=== PATIENT | female | born 1975 | race Caucasian/White ===

== ENCOUNTER → 2018-07-05 | Outpatient (REF) | payer OTHER ==
[2018-07-05 19:00] LABS: BASO % 0.3 % (0.0-1.0); EOS # 0.1 10^3/uL (0.0-0.50); EOS % 1.5 % (0.0-3.0); HEMATOCRIT 41.3 % (36.0-47.0); HEMOGLOBIN 13.7 g/dl (12.0-15.5); LYMPH # 3.6 10^3/uL (1.5-4.5); LYMPH % 40.4 % (24.0-44.0); MEAN CORPUSCULAR HEMOGLOBIN 30.9 pg (27.0-33.0); MEAN CORPUSCULAR HGB CONC 33.2 g/dl (32.0-36.5); MEAN CORPUSCULAR VOLUME 93.2 fl (80.0-96.0); MONO # 0.5 10^3/uL (0.0-0.8); MONO % 5.8 % (0.0-5.0); NEUTROPHILS # 4.6 10^3/uL (1.8-7.7); NEUTROPHILS % 51.7 % (36.0-66.0); PLATELET COUNT, AUTOMATED 337 10^3/uL (150-450); RED BLOOD COUNT 4.43 10^6/uL (4.00-5.40)
[2018-07-05 19:18] LABS: FREE T4 0.94 NG/DL (0.76-1.46); THYROID STIMULATING HORMONE 0.038 uIU/ML (0.358-3.740)
[2018-07-07 15:16] LABS: HPV HYBRID CAPTURE II Negative (Negative)
== END ==
LOC: M LABDRWAD 17:16
PROVIDERS: ATTEND Obstetrics & Gynecology
DX: N93.9 Abnormal uterine and vaginal bleeding, unspecified (principal)

== ENCOUNTER → 2018-09-01 | Outpatient (REF) | payer OTHER | LOC: M LAB REF 12:41 | PROVIDERS: ATTEND Physician Assistant | DX: F11.20 Opioid dependence, uncomplicated (principal) ==

== ENCOUNTER → 2018-09-17 | Outpatient (CLI) | payer OTHER ==
--- NOTE | 2018-09-17 12:22 | REPMRS ---
Patient History The patient states she has not had a clinical breast exam in over a year. Family history of pancreatic cancer at age 50 or over in maternal grandfather. Took hormonal contraceptives for 5 years. Digital Woman Screen Mammo: September 17, 2018 - Exam #: [id number] Bilateral CC and MLO view(s) were taken. Technologist: Genoveva Khan, Technologist FINDINGS: There are scattered fibroglandular densities. There is no evidence of cancer on this mammogram. Assessment: BI-RADS/ACR category 2 mammogram. Benign Findings. Recommendation Routine screening mammogram of both breasts in 1 year (for women over age 40). This mammogram was interpreted with the aid of an FDA-approved computer-aided dectection system. Electronically Signed By: Nicho Sim MD 09/17/18 [id number]
--- NOTE | 2018-09-17 12:51 | REP ---
PELVIC SONOGRAM: HISTORY: Abnormal uterine and vaginal bleeding. FINDINGS: Transabdominal and transvaginal scanning are performed. Uterine dimensions are normal at 8.0 x 4.2 x 4.8 cm. Endometrial echo is 1.3 cm in anteroposterior dimension. No focal uterine mass is seen. Nabothian cysts are seen in the cervix. Urinary bladder diaz are smooth. Normal ovaries are seen bilaterally. Right ovarian dimensions are 3.0 x 2.4 x 3.3 cm. Left ovary measures 2.4 x 2.0 x 2.3 cm. Doppler flow is normal in both ovaries. Resistive indices are 0.39 on the right and 0.69 on the left. IMPRESSION: Normal pelvic sonography findings. Electronically Signed by Tu Chen MD 09/17/2018 01:09 P
== END ==
LOC: M WHC 10:14
PROVIDERS: ATTEND Obstetrics & Gynecology
DX: Z12.31 Encounter for screening mammogram for malignant neoplasm of breast (principal); N93.9 Abnormal uterine and vaginal bleeding, unspecified

== ENCOUNTER → 2018-09-21 | Outpatient (REF) | payer OTHER ==
[2018-09-21 15:22] LABS: BASO % 0.4 % (0.0-1.0); EOS # 0.1 10^3/uL (0.0-0.50); HEMATOCRIT 40.8 % (36.0-47.0); HEMOGLOBIN 13.3 g/dl (12.0-15.5); LYMPH # 2.7 10^3/uL (1.5-4.5); LYMPH % 55.9 % (24.0-44.0); MEAN CORPUSCULAR HEMOGLOBIN 30.9 pg (27.0-33.0); MEAN CORPUSCULAR HGB CONC 32.6 g/dl (32.0-36.5); MEAN CORPUSCULAR VOLUME 94.7 fl (80.0-96.0); MONO # 0.3 10^3/uL (0.0-0.8); MONO % 6.1 % (0.0-5.0); NEUTROPHILS # 1.7 10^3/uL (1.8-7.7); NEUTROPHILS % 35.6 % (36.0-66.0); PLATELET COUNT, AUTOMATED 369 10^3/uL (150-450); RED BLOOD COUNT 4.31 10^6/uL (4.00-5.40); WHITE BLOOD COUNT 4.9 10^3/uL (4.0-10.0)
[2018-09-21 15:36] LABS: ALBUMIN 4.2 GM/DL (3.2-5.2); ALT/SGPT 20 U/L (12-78); BILIRUBIN,TOTAL 0.5 MG/DL (0.2-1.0); BLOOD UREA NITROGEN 9 MG/DL (7-18); CALCIUM LEVEL 9.5 MG/DL (8.5-10.1); CARBON DIOXIDE LEVEL 27 MEQ/L (21-32); CHLORIDE LEVEL 103 MEQ/L (98-107); CHOLESTEROL LEVEL 236 MG/DL (<200); CHOLESTEROL RISK RATIO 4.538 (<5); CREATININE FOR GFR 0.66 MG/DL (0.55-1.30); FREE T4 1.16 NG/DL (0.76-1.46); GLOMERULAR FILTRATION RATE > 60.0 (>58); GLUCOSE, FASTING 92 MG/DL (70-100); HDL CHOLESTEROL 52 MG/DL (>40); LDL CHOLESTEROL 168 MG/DL (<100); NON-HDL-C 184 MG/DL; POTASSIUM SERUM 4.7 MEQ/L (3.5-5.1); SODIUM LEVEL 139 MEQ/L (136-145); THYROID STIMULATING HORMONE 0.017 uIU/ML (0.358-3.740); TOTAL PROTEIN 7.7 GM/DL (6.4-8.2); TRIGLYCERIDES LEVEL 80 MG/DL (<150)
== END ==
LOC: M SFHCSACK 09:08
PROVIDERS: ATTEND Physician Assistant
DX: N94.6 Dysmenorrhea, unspecified (principal); E78.2 Mixed hyperlipidemia; E03.9 Hypothyroidism, unspecified; E55.9 Vitamin D deficiency, unspecified

== ENCOUNTER → 2018-09-25 | Outpatient (REF) | payer OTHER | LOC: M LAB REF 18:03 | PROVIDERS: ATTEND Obstetrics & Gynecology | DX: N93.9 Abnormal uterine and vaginal bleeding, unspecified (principal) ==

== ENCOUNTER → 2018-11-16 | Outpatient (REF) | payer OTHER ==
[~2018-11-16] MED LIST: ARMO90TA PO; COEN100T PO; CVS10CAP7 PO; IBUP80TA PO; PERC5TAB12 PO; RED600TA PO
== END ==
LOC: M SFHCPLAZ 17:18
PROVIDERS: ATTEND Dermatology
DX: D17.21 Benign lipomatous neoplasm of skin and subcutaneous tissue of right arm (principal)

== ENCOUNTER 2018-11-21 08:18 | Day surgery (SDC) | payer OTHER ==
[~2018-11-21] VITALS: Ht 170.2 cm; Wt 70.9 kg
[~2018-11-21 08:18] MED LIST changes: -IBUP80TA PO; +LR 1,000 ML IV ONE; -PERC5TAB12 PO
[2018-11-21 08:48] LABS: HEMATOCRIT 39.1 % (36.0-47.0); MEAN CORPUSCULAR HEMOGLOBIN 30.9 pg (27.0-33.0); MEAN CORPUSCULAR HGB CONC 33.2 g/dl (32.0-36.5); MEAN CORPUSCULAR VOLUME 92.9 fl (80.0-96.0); PLATELET COUNT, AUTOMATED 310 10^3/uL (150-450); RED BLOOD COUNT 4.21 10^6/uL (4.00-5.40); WHITE BLOOD COUNT 6.2 10^3/uL (4.0-10.0)
[2018-11-21] MEDS ORDERED: MIDAZOLAM INJ 2 MG/2 ML VIAL (J2250) As Ordered ONE (08:58)
[2018-11-21] MEDS ORDERED: PROPOFOL 200 MG/20 ML VIAL As Ordered ONE (08:58)
[2018-11-21] MEDS ORDERED: LIDOCAINE 2% INJ 100 MG/5 ML SDV (FOR ANES.) As Ordered ONE (08:58)
[2018-11-21] MEDS ORDERED: fentaNYL 100 MCG/2 ML INJECTION (J3010) As Ordered ONE (08:58)
[2018-11-21] MEDS ORDERED: dexameTHASONE 4 MG/ML 1ML VIAL (J1100) As Ordered ONE (08:58)
[2018-11-21] MEDS ORDERED: ONDANSETRON 4MG/2ML VIAL (J2405) As Ordered ONE (08:58)
[2018-11-21] MEDS ORDERED: KETOROLAC 60 MG/2 ML VIAL (J1885) As Ordered ONE (08:58)
[2018-11-21] MEDS ORDERED: ePHEDrine SULFATE 25 MG/5 ML(5MG/ML) SYRINGE As Ordered ONE (10:58)
[2018-11-21 11:58] LABS: HCG, SERUM QUALITATIVE NEGATIVE (NEGATIVE)
[2018-11-21] MEDS ORDERED: SILVER NITRATE APPLICATOR As Ordered ONE (12:39)
[2018-11-21] MEDS ORDERED: oxyCODONE 5MG TAB As Ordered ONE (13:22)
[2018-11-21] MEDS ORDERED: oxyCODONE 5MG TAB PO PRN (13:30)
[2018-11-21] MEDS ORDERED: fentaNYL 100 MCG/2 ML INJECTION (J3010) IV PRN (13:30)
[2018-11-21] MEDS ORDERED: LR 1,000 ML IV SCH (13:30)
[2018-11-21 13:45] VITALS: BP 130/74
[2018-11-21] MEDS ORDERED: IBUP80TA PO (14:41)
[2018-11-21] MEDS ORDERED: PERC5TAB12 PO (14:41)
--- NOTE | 2018-11-21 15:09 | RO ---
DATE OF PROCEDURE: 11/21/2018 PREOPERATIVE DIAGNOSIS: Abnormal uterine bleeding. POSTOPERATIVE DIAGNOSIS: Abnormal uterine bleeding. PROCEDURE PERFORMED: Hysteroscopy, dilation and curettage (D and C), NovaSure endometrial ablation. SURGEON: Jefferson Gregorio DO DRESSER TENDER: None. ANESTHESIA: General via laryngeal mask airway (LMA) SPECIMENS SENT TO PATHOLOGY: Endometrial curettings. ESTIMATED BLOOD LOSS: 10 mL FLUIDS REPLACED: 300 mL lactated Ringer's. DRAINS: In-and-out catheter. 50 mL of urine output. COMPLICATIONS: None. PREOPERATIVE ANTIBIOTICS: None indicated. INTRAOPERATIVE FINDINGS: Cavity length was 6.5 cm, width was 4.3 cm. Power setting 154, total ablation time 67 seconds. HYSTEROSCOPIC FINDINGS: No intrauterine mass. No evidence of uterine perforation pre and post ablation. INDICATION: Patient is 43-year-old with a longstanding history of abnormal uterine bleeding. We have reviewed all treatment options. She has elected to proceed with NovaSure endometrial ablation. Preoperative endometrial biopsy was negative for hyperplasia or malignancy. DESCRIPTION OF PROCEDURE: The patient was counseled and consented on the risks, benefits, indications, and alternatives of the procedure. Informed consent was obtained. She was taken to the operating room with IV running. She was placed on the operating room table in the dorsal supine position. General anesthesia was obtained and the airway secured without any difficulty. She was placed in the high lithotomy position. Time-out was performed per protocol. She was prepared and draped in a normal sterile fashion. The bladder was drained with a sterile in-and-out catheter. A sterile speculum was placed with good visualization of the cervix. The anterior lip of the cervix was grasped with a single-tooth tenaculum and downward traction was applied. The cervix was sequentially dilated with Jonathan dilators up to #16. The uterine cavity length was assessed to be 6.5 cm. The hysteroscope was placed into the intrauterine cavity with findings noted above. The hysteroscope was removed. The NovaSure device was placed transcervically into the intrauterine cavity and deployed. Cavity width assessment was performed. The cavity assessment was performed and cleared. The ablation was activated. Total ablation time was 67 seconds. The NovaSure device was removed in typical fashion and charred tissue was noted on both sides of the mesh wiring. The hysteroscope was placed post ablation to inspect the cavity and assess for any evidence of uterine perforation. No evidence of uterine perforation was noted. Excellent distension and air bubble was noted within the cavity. Global ablation was noted throughout the cavity. Packing Line Worker images were taken. The hysteroscope was removed. The single-tooth tenaculum was removed. Tenaculum sites were cauterized with silver nitrate. Excellent hemostasis noted. Counts were correct per protocol. All instruments were removed from the vagina. The patient tolerated the entire procedure very well. She was transferred to the PACU in good and stable condition. OLAF
== END 2018-11-21 13:56 | disposition home or self-care (01) ==
LOC: M SDC 08:18
PROVIDERS: ATTEND Obstetrics & Gynecology
DX: N92.5 Other specified irregular menstruation (principal); M79.7 Fibromyalgia; F32.9 Major depressive disorder, single episode, unspecified; E03.9 Hypothyroidism, unspecified; K58.8 Other irritable bowel syndrome; Z79.899 Other long term (current) drug therapy
CPT/HCPCS: 36415; 58563; 84703; 85027; 86850; 86900; 86901; 88305; J1100; J1885; J2250; J2405; J3010